=== PATIENT | male | born 1980 | race Caucasian/White ===

== ENCOUNTER → 2022-11-09 07:52 | Outpatient (CLI) | payer OTHER, SELFPAY ==
--- NOTE | ~2022-11-09 | XR_ITS ---
EXAM: XR abdomen/kub 1V DATE: 11/09/2022 08:14 HISTORY: Calculus of kidney . COMPARISON: 08/12/2016. FINDINGS: Clear lung bases. Normal bowel gas pattern. No organomegaly. 2-3 mm calcifications project over the right upper and lower renal poles. Multiple enlarged or calcifications project over the lef t mid and lower poles including a is likely a cluster of calcifications measuring 5 x 16 mm. Multiple pelvic phleboliths are stable. Regional bones and soft tissues normal for age. IMPRESSION: Bilateral nephrolithiasis. Reviewed, dictated and finalized at location [facility]. IMPRESSION: Bilateral nephrolithiasis.
== END ==
PROVIDERS: PCP Urology; Visit Provider Urology
DX: N20.0 Calculus of kidney (principal)
CPT/HCPCS: 74018